=== PATIENT | male | born 1945 | race Caucasian/White ===

== ENCOUNTER 2017-04-13 09:25 | Day surgery (SDC) | payer BC ==
[2017-04-13] MEDS ORDERED: Lactated Ringers 1,000 ML IV SCH (09:30)
--- NOTE | 2017-04-13 11:02 | PCM.OPNOTE ---
- General Post-Op/Procedure Note Date of Surgery/Procedure: 04/13/17 Operative Procedure(s): egd with bx Findings: gastritis fundic gland polyps Schatski's Ring Pre Op Diagnosis: epigastric abd pain Post-Op Diagnosis: gastritis. fundic gland polyps. Schatski's Ring Anesthesia Technique: MAC Primary Surgeon: Jon Urena Anesthesia Provider: Lolyd Arredondo Pathology: stomach and distal esophagus Complications: None Condition: Good Free Text/Narrative:: see dictation
--- NOTE | 2017-04-13 12:07 | OR ---
DATE OF OPERATION: 04/13/2017 SURGEON: Jon Urena MD PROCEDURE PERFORMED: Esophagogastroduodenoscopy with cold forceps biopsy. PREOPERATIVE DIAGNOSIS: Epigastric abdominal pain. POSTOPERATIVE DIAGNOSIS: Gastritis with fundic gland polyposis and Schatzki's ring. INDICATIONS FOR PROCEDURE: This is a 71-year-old white male, who has been having some issues with epigastric abdominal pain despite being on a proton pump inhibitor. He was offered and accepted an EGD as part of his workup. DESCRIPTION OF PROCEDURE: After an excellent IV sedation was administered and bite block was inserted, flexible endoscope was passed without difficulty down the patient's esophagus into the stomach. Stomach was insufflated, scope was passed through the pylorus to the second portion of the duodenum and slowly withdrawn. The following findings were noted. Duodenum was unremarkable. Stomach demonstrated some diffuse gastritis with some fundic gland hyperplasia. Casket Inspector biopsies were taken on the fundic gland and biopsies were taken of the stomach as well. Distal esophagus and GE junction measured approximately 35 cm. There was evidence of a Schatzki's ring and biopsies were taken of this ring. Remainder of the esophageal exam was unremarkable. The stomach was deflated. Scope was removed. The patient tolerated procedure well and was taken to recovery room in good condition. /[id number] /MODL
[2017-04-13 12:18] VITALS: BP 156/93
[2017-04-13] MEDS ORDERED: Lidocaine 2% 100 MG/5 ML Syringe IVPUSH ONE (16:30)
[2017-04-13] MEDS ORDERED: Propofol 200 MG/20 ML SDV IV ONE (16:30)
== END 2017-04-13 12:07 | disposition home or self-care (01) ==
LOC: FB.SDS 09:25
PROVIDERS: ATTEND Surgery
DX: K29.50 Unspecified chronic gastritis without bleeding (principal); K20.9 Esophagitis, unspecified; K31.7 Polyp of stomach and duodenum; K22.2 Esophageal obstruction; I10 Essential (primary) hypertension; N40.1 Benign prostatic hyperplasia with lower urinary tract symptoms; E66.9 Obesity, unspecified; Z79.82 Long term (current) use of aspirin; Z79.2 Long term (current) use of antibiotics; Z79.899 Other long term (current) drug therapy; Z68.32 Body mass index [BMI] 32.0-32.9, adult
CPT/HCPCS: 43239; 88305; 88313; 88342; J2704; J7120

== ENCOUNTER 2018-08-29 12:27 | Emergency (ER) | payer MEDICARE, BC ==
--- NOTE | 2018-08-29 12:37 | EDM.PDOC ---
ED HPI GENERAL MEDICAL PROBLEM - General Stated Complaint: CHEST PAIN Time Seen by Provider: 08/29/18 12:27 Source of Information: Reports: Patient, Family () History Limitations: Reports: No Limitations - History of Present Illness INITIAL COMMENTS - FREE TEXT/NARRATIVE: 72 y.o.w.m with no prev CAD, H/o HTN, came to the ED with his after he woke up from a NAP after breakfast, at rest, with chest pain 6/10, no Diaphoresis, no SOB, pos FH of CAD. Pt had a Cardiac W/U last January which was borderline. Initial ECG showed ST dep ant lat leads. [address] elevation on Lead II only. No Dizziness no lightheadedness, no F/C, no other acute med issues. BP 159/100 RR 15 Pulse ox 98% on RA, Pulse 71 Temp 36.6 Onset Date: 08/29/18 Onset Time: 10:00 Duration: Hour(s): Location: Reports: Chest Quality: Reports: Dull, Pressure (new event) Severity: Moderate (6/10) Improves with: Reports: Medication Worsens with: Reports: Other Context: Reports: Other Associated Symptoms: Reports: Chest Pain Treatments BRANCH ADMINISTRATOR: Reports: Aspirin (81 mg) chest Pain Score (Numeric/FACES): 4 - Related Data Allergies Allergy/AdvReac Type Severity Reaction Status Date / Time No Known Allergies Allergy Verified 08/29/18 12:36 Home Meds: Home Meds Ascorbate Calcium [Vitamin C] 1,000 mg PO DAILY 03/22/16 [History] Aspirin 325 mg PO DAILY 03/22/16 [History] Metoprolol Succinate 25 mg PO DAILY 03/22/16 [History] Multivitamin with Minerals [Multiple Vitamin] 1 tab PO DAILY 03/22/16 [History] [place]-3 Fatty Acids [Fish Oil] 1,000 mg PO DAILY 03/22/16 [History] Acetaminophen [Tylenol Arthritis] 650 mg PO Q8H PRN 04/12/17 [History] Bisacodyl 200 mg PO DAILY 04/12/17 [History] Calcium Carbonate/Vitamin D3 [Calcium 600 + Vit D 200] 1 ea PO DAILY 04/12/17 [ History] Finasteride [Proscar] 5 mg PO DAILY 04/12/17 [History] Tamsulosin HCl [Flomax] 0.4 mg PO DAILY 04/12/17 [History] Pantoprazole [ProTONIX] 40 mg PO DAILY 03/21/18 [History] Past Medical History HEENT History: Reports: Allergic Rhinitis, Impaired Vision Cardiovascular History: Reports: Hypertension Other Cardiovascular History: ATYPICAL CHEST PAIN WITH NEGATIVE STRESS TEST IN JAN 2018 Respiratory History: Reports: None Gastrointestinal History: Reports: Colon Polyp Genitourinary History: Reports: Prostate Disorder, Renal Calculus, UTI, Recurrent Other Genitourinary History: BILATERAL KIDNEY STONES, BLADDER DIVERTICULUM, ENLARGED PROSTATE, UTI'S, GOUT, ELEVATED PSA BRANCH MANAGER TRAINEE History: Reports: None Musculoskeletal History: Reports: Fracture, Gout, Osteoarthritis Other Musculoskeletal History: CLOSED FX PATELLA Neurological History: Reports: None, Concussion, Head Trauma Other Neuro History: STATES HAD CONCUSSION AROUND 20 Psychiatric History: Reports: None Endocrine/Metabolic History: Reports: Obesity/BMI 30+ Hematologic History: Reports: None Immunologic History: Reports: None Oncologic (Cancer) History: Reports: Basal Cell Carcinoma, Colon Other Oncologic History: neck - basal cell cancer Dermatologic History: Reports: None - Infectious Disease History Infectious Disease History: Reports: Chicken Pox, Measles - Past Surgical History Female Surgical History: Social & Family History - Family History Family Medical History: Noncontributory - Caffeine Use Caffeine Use: Reports: Coffee, Soda ED ROS GENERAL - Review of Systems Review Of Systems: See Below Constitutional: Reports: No Symptoms HEENT: Reports: No Symptoms Respiratory: Reports: No Symptoms Cardiovascular: Reports: Chest Pain (going down his right arm) Endocrine: Reports: No Symptoms GI/Abdominal: Reports: No Symptoms : Reports: No Symptoms Musculoskeletal: Reports: No Symptoms Skin: Reports: No Symptoms Neurological: Reports: No Symptoms Psychiatric: Reports: No Symptoms Hematologic/Lymphatic: Reports: No Symptoms Immunologic: Reports: No Symptoms ED EXAM, GENERAL - Physical Exam Exam: See Below Exam Limited By: No Limitations General Appearance: Alert, WD/WN, Moderate Distress Eye Exam: Bilateral Eye: Normal Inspection Ears: Normal External Exam, Normal Canal Ear Exam: Bilateral Ear: Auricle Normal Nose: Normal Inspection, Normal Mucosa, No Blood Throat/Mouth: Normal Inspection, Normal Lips, Normal Voice, No Airway Compromise Head: Atraumatic, Normocephalic Neck: Normal Inspection, Supple, Non-Tender Respiratory/Chest: No Respiratory Distress, Lungs Clear Cardiovascular: Normal Peripheral Pulses, Regular Rate, Rhythm, No Edema, No Gallop Peripheral Pulses: 1+: Brachial (L) GI/Abdominal: Normal Bowel Sounds, Soft, Non-Tender, No Organomegaly, Pelvis Stable (Male) Exam: Deferred Rectal (Males) Exam: Deferred Back Exam: Normal Inspection, Full Range of Motion Extremities: Normal Inspection, Normal Range of Motion, Non-Tender, Normal Capillary Refill Neurological: Alert, Oriented, CN II-XII Intact, Normal Cognition, Normal Gait Psychiatric: Normal Affect, Normal Mood Skin Exam: Warm, Dry, Intact, Normal Color, No Rash Lymphatic: No Adenopathy EKG INTERPRETATION EKG Date: 08/29/18 Time: 12:25 Rhythm: NSR Rate (Beats/Min): 66 [place]: Normal P-Wave: Present QRS: Normal ST-T: Elevated (on lead III only 1/2 mm) QT: Normal Comparison: NA - No Prior EKG EKG Interpretation Comments: Second EC08/29/2018 14.41: Improved ST depression, ST elevation Lead II subsided Course - Vital Signs Text/Narrative:: 72 y.o.w.m with no prev CAD, H/o HTN, came to the ED with his after he woke up from a NAP after breakfast, at rest, with chest pain /10, no Diaphoresis, no SOB, pos FH of CAD. Pt had a Cardiac W/U last January which was borderline. Initial ECG showed ST dep ant lat leads. [address] elevation on Lead II only. No Dizziness no lightheadedness, no F/C, no other acute med issues. BP 159/100 RR 15 Pulse ox 98% on RA, Pulse 71 Temp 36.6 PE: WNWD W M with SSCP radiating to his right arm, first event of this kind of pain 10/01 Imaging: possible COPD, cardiomegaly as per RAD. Angio CT: No PA. Has calcification in his Coronary vessels, Fixed Hiatal hernia as per RAD Labs: Troponin 0.058 D Dimer 0.63 BMP nl except GFR was 59 Impression: Unstable angina, HTN, Elevated D dimer TX: ASA BRANCH ADMINISTRATOR, NTG paste, Heparin trip, Labetalol Reexam: Pain free after Tx 2.00 pm/3.00pm, pending Angio CT results: Consultation: Dr Zacarias, Hospitalist, [facility]: Agreed with Tx; accepted pt for transfer and further Tx Plan: Transfer by EMS to [facility] Last Recorded V/S: Last Vital Signs Temp 36.6 C 08/29/18 12:27 Pulse 71 08/29/18 12:27 Resp 16 08/29/18 14:45 BP 153/87 H 08/29/18 14:45 Pulse Ox 97 08/29/18 14:45 - Orders/Labs/Meds Orders: Active Orders 24 hr Category Date Time Status EKG Documentation Completion [RC] ASDIRECTED Care 08/29/18 12:48 Active EKG Documentation Completion [RC] ASDIRECTED Care 08/29/18 14:18 Active Heparin Sodium/0.45% NaCl [Heparin 25,000 Units in 1/2 Med 08/29/18 13:30 Active NS 500 ML] 25,000 units in 500 ml IV TITRATE Sodium Chloride 0.9% [Saline Flush] Med 08/29/18 13:00 Active 10 ml FLUSH ASDIRECTED PRN Peripheral IV Insertion Adult [OM.PC] Routine Oth 08/29/18 12:54 Ordered EKG 12 Lead [EK] Routine Ther 08/29/18 11:30 Ordered EKG 12 Lead [EK] Routine Ther 08/29/18 14:18 Ordered Medication Orders Heparin Sodium/Sodium Chloride (Heparin 25,000 Units In 1/2 Ns 500 Ml) 25,000 units in 500 mls @ 19.998 mls/hr IV TITRATE MARCK; Protocol Last Admin: 08/29/18 14:07 Dose: 10.02 units/kg/hr, 19.998 mls/hr Sodium Chloride (Saline Flush) 10 ml FLUSH ASDIRECTED PRN PRN Reason: Keep Vein Open Last Admin: 08/29/18 13:56 Dose: 10 ml Admin: 08/29/18 13:35 Dose: 10 ml Labs: Laboratory Tests 08/29/18 08/29/18 08/29/18 Range/Units 12:50 12:50 12:50 WBC 6.4 (4.5-12.0) X10-3/uL RBC 3.96 L (4.30-5.75) x10(6)uL Hgb 13.5 (13.5-17.8) g/dL Hct 39.7 (30.0-51.3) % MCV 100.3 H (80-96) fL MCH 34.2 H (27.7-33.6) pg MCHC 34.1 (32.2-35.4) g/dL RDW 13.0 (11.5-15.5) % Plt Count 160 (125-369) X10(3)uL MPV 9.9 (7.4-10.4) fL Neut % (Auto) 65.8 (46-82) % Lymph % (Auto) 26.8 (13-37) % [place] % (Auto) 5.6 (4-12) % Eos % (Auto) 1 (1.0-5.0) % Baso % (Auto) 1 (0-2) % Neut # (Auto) 4.1 (1.6-8.3) # Lymph # (Auto) 1.7 (0.6-5.0) # [place] # (Auto) 0.4 (0.0-1.3) # Eos # (Auto) 0.1 (0.0-0.8) # Baso # (Auto) 0.1 (0.0-0.2) # PT 11.0 (8.7-11.1) INR 1.13 (0.89-1.13) D-Dimer, Quantitative 0.63 H (0.0-0.59) mg/LFEU Sodium 143 (135-145) mmol/L Potassium 3.8 (3.5-5.3) mmol/L Chloride 105 (100-110) mmol/L Carbon Dioxide 27 (21-32) mmol/L BUN 17 (7-18) mg/dL Creatinine 1.2 (0.70-1.30) mg/dL Est Cr Clr Drug Dosing TNP Estimated GFR (MDRD) 59 L (>60) BUN/Creatinine Ratio 14.2 (9-20) Glucose 104 (80-116) mg/dL Calcium 8.9 (8.6-10.2) mg/dL Troponin I (<0.017-0.056) ng/mL Urine Color (YELLOW) Urine Appearance (CLEAR) Urine pH (5.0-6.5) Ur Specific [place] (1.010-1.025) Urine Protein (NEGATIVE) mg/dL Urine Glucose (UA) (NORMAL) mg/dL Urine Ketones (NEGATIVE) mg/dL Urine Occult Blood (NEGATIVE) Urine Nitrite (NEGATIVE) Urine Bilirubin (NEGATIVE) Urine Urobilinogen (NEGATIVE) mg/dL Ur Leukocyte Esterase (NEGATIVE) Urine RBC (0-5) Urine WBC (0-5) Ur Squamous Epith Cells (NS,R,O) Urine Bacteria (NS) Urine Mucus (NS) 08/29/18 08/29/18 Range/Units 12:50 13:15 WBC (4.5-12.0) X10-3/uL RBC (4.30-5.75) x10(6)uL Hgb (13.5-17.8) g/dL Hct (30.0-51.3) % MCV (80-96) fL MCH (27.7-33.6) pg MCHC (32.2-35.4) g/dL RDW (11.5-15.5) % Plt Count (125-369) X10(3)uL MPV (7.4-10.4) fL Neut % (Auto) (46-82) % Lymph % (Auto) (13-37) % [place] % (Auto) (4-12) % Eos % (Auto) (1.0-5.0) % Baso % (Auto) (0-2) % Neut # (Auto) (1.6-8.3) # Lymph # (Auto) (0.6-5.0) # [place] # (Auto) (0.0-1.3) # Eos # (Auto) (0.0-0.8) # Baso # (Auto) (0.0-0.2) # PT (8.7-11.1) INR (0.89-1.13) D-Dimer, Quantitative (0.0-0.59) mg/LFEU Sodium (135-145) mmol/L Potassium (3.5-5.3) mmol/L Chloride (100-110) mmol/L Carbon Dioxide (21-32) mmol/L BUN (7-18) mg/dL Creatinine (0.70-1.30) mg/dL Est Cr Clr Drug Dosing Estimated GFR (MDRD) (>60) BUN/Creatinine Ratio (9-20) Glucose (80-116) mg/dL Calcium (8.6-10.2) mg/dL Troponin I 0.058 H (<0.017-0.056) ng/mL Urine Color Yellow (YELLOW) Urine Appearance Clear (CLEAR) Urine pH 7.0 H (5.0-6.5) Ur Specific [place] 1.010 (1.010-1.025) Urine Protein Negative (NEGATIVE) mg/dL Urine Glucose (UA) Normal (NORMAL) mg/dL Urine Ketones Negative (NEGATIVE) mg/dL Urine Occult Blood Negative (NEGATIVE) Urine Nitrite Negative (NEGATIVE) Urine Bilirubin Negative (NEGATIVE) Urine Urobilinogen Normal (NEGATIVE) mg/dL Ur Leukocyte Esterase Negative (NEGATIVE) Urine RBC 0-5 (0-5) Urine WBC 0-5 (0-5) Ur Squamous Epith Cells Occasional (NS,R,O) Urine Bacteria Occasional H (NS) Urine Mucus Occasional H (NS) Meds: Medications Generic Name Dose Route Start Last Admin Trade Name Freq PRN Reason Stop Dose Admin Heparin Sodium/Sodium Chloride 25,000 units in 500 mls @ 19.998 mls/hr 13:30 08/29/18 14:07 Heparin 25,000 Units In 1/2 Ns 500 Ml IV 10.02 units/kg/hr TITRATE MARCK 19.998 mls/hr Administration Protocol 10.02 UNITS/KG/HR Sodium Chloride 10 ml 08/29/18 13:00 08/29/18 13:56 Saline Flush FLUSH 10 ml ASDIRECTED PRN Administration Keep Vein Open Discontinued Medications Generic Name Dose Route Start Last Admin Trade Name Freq PRN Reason Stop Dose Admin Acetaminophen 650 mg 08/29/18 15:17 Tylenol PO 08/29/18 15:18 NOW ONE Aspirin 162 mg 08/29/18 12:38 08/29/18 12:47 Aspirin PO 08/29/18 12:39 Not Given ONETIME STA Aspirin 81 mg 08/29/18 12:39 08/29/18 12:47 Aspirin PO 08/29/18 12:40 Not Given ONETIME STA Iopamidol 100 ml 08/29/18 14:14 08/29/18 14:32 Isovue-370 (76%) IV 08/29/18 14:15 85 ml . DIRECTED ONE Administration Labetalol HCl Confirm 08/29/18 13:24 08/29/18 14:45 Normodyne Administered 08/29/18 13:25 Not Given Dose 100 mg .ROUTE .STK-MED ONE Labetalol HCl 10 mg 08/29/18 13:20 08/29/18 13:35 Normodyne IV 08/29/18 13:21 10 mg ONETIME STA Administration Protocol Labetalol HCl 10 mg 08/29/18 13:55 08/29/18 13:58 Normodyne IV 08/29/18 13:56 10 mg ONETIME ONE Administration Protocol Nitroglycerin 1 gm 08/29/18 12:53 08/29/18 13:00 Nitro-Bid 2% TOP 08/29/18 12:54 1 gm ONETIME STA Administration Departure - Departure Time of Disposition: 15:32 Disposition: DC/Tfer to [facility] 02 Reason for Transfer *Q: Other (No field sales representative) Condition: Fair Clinical Impression: Unstable angina Referrals: Jonathan Gomez MD [Primary Care Provider] - - My Orders Last 24 Hours: My Active Orders 08/29/18 11:30 EKG 12 Lead [EK] Routine 08/29/18 12:48 EKG Documentation Completion [RC] ASDIRECTED 08/29/18 12:54 Peripheral IV Insertion Adult [OM.PC] Routine 08/29/18 13:00 Sodium Chloride 0.9% [Saline Flush] 10 ml FLUSH ASDIRECTED PRN 08/29/18 13:30 Heparin Sodium/0.45% NaCl [Heparin 25,000 Units in 1/2 NS 500 ML] 25,000 units in 500 ml IV TITRATE 08/29/18 14:18 EKG Documentation Completion [RC] ASDIRECTED EKG 12 Lead [EK] Routine - Assessment/Plan Last 24 Hours: My Active Orders 08/29/18 11:30 EKG 12 Lead [EK] Routine 08/29/18 12:48 EKG Documentation Completion [RC] ASDIRECTED 08/29/18 12:54 Peripheral IV Insertion Adult [OM.PC] Routine 08/29/18 13:00 Sodium Chloride 0.9% [Saline Flush] 10 ml FLUSH ASDIRECTED PRN 08/29/18 13:30 Heparin Sodium/0.45% NaCl [Heparin 25,000 Units in 1/2 NS 500 ML] 25,000 units in 500 ml IV TITRATE 08/29/18 14:18 EKG Documentation Completion [RC] ASDIRECTED EKG 12 Lead [EK] Routine
[2018-08-29] MEDS ORDERED: Aspirin 81 MG Tab.Chew PO STA ×2 (12:38→12:39)
[2018-08-29] MEDS ORDERED: Nitroglycerin 2% Oint 1 GM UD Packet TOP STA (12:53)
[2018-08-29] MEDS ORDERED: Labetalol 20 MG/4 ML Syringe IVPUSH STA ×2 (13:20→13:55)
[2018-08-29] MEDS ORDERED: Labetalol 100 MG/20 ML MDV IV STA (13:20)
[2018-08-29] MEDS ORDERED: Labetalol 100 MG/20 ML MDV ONE (13:24)
--- NOTE | 2018-08-29 13:27 | CR ---
INDICATION: Chest pain. CHEST: AP portable upright view of the chest 08/29/18 - no comparisons. Findings compatible with COPD and ASHD with cardiomegaly are noted. No definite evidence of CHF is seen. No definite active infiltrate or effusion was identified, although minimal patchy pneumonia at the left lower lobe cannot be excluded. Overlying EKG leads are noted. The aorta is tortuous with calcification in the arch. IMPRESSION: 1. No acute process. 2. ASHD with cardiomegaly. 3. COPD. 4. Difficult to exclude minimal patchy bronchopneumonia at the left lower lobe. MTDD
[2018-08-29] MEDS ORDERED: Heparin Sodium/0.45% NaCl 25,000 UNITS/500 ML BAG IV SCH (13:30)
[2018-08-29] MEDS: Sodium Chloride 0.9% 10 ML Syringe FLUSH PRN ×2 (13:35→13:56)
[2018-08-29] MEDS ORDERED: Labetalol 100 MG/20 ML MDV IV ONE (13:55)
[2018-08-29] MEDS ORDERED: Iopamidol 755 Mg/ML 100 ML Bottle IV ONE (14:14)
[2018-08-29] MEDS ORDERED: Acetaminophen 325 MG Tab PO ONE (15:17)
--- NOTE | 2018-08-29 15:31 | CT ---
INDICATION: Chest pain, elevated D-dimer (0.63). COMPUTERIZED TOMOGRAPHY ANGIOGRAPHY OF THE CHEST WITH CONTRAST: Spiral 1.25 mm axial sections were obtained through the chest with sagittal and coronal reconstructions, with 85 mL Isovue 370 at 3 mL/second, 08/29/18 - no comparisons. Total exam DLP = 1,061.39 mGy-cm. There is some minimal infiltration in the superior segment of the left lower lobe, which could be on the basis of patchy pneumonia, extending minimally into the posterior basilar segment. This area of heavy markings could also be partly on the basis of subsegmental atelectasis. There are some heavy markings, and this could represent minimal pneumonia and/ or subsegmental atelectasis in the lingula also to a mild degree. Slightly heavy markings at the right lung base and left lung base likely are fibrotic in nature. Subpleural density in the middle lobe on axial image #74 may represent a lymph node. No gross consolidating pneumonia or significant effusion could be identified. A small to moderate sized fixed hiatal hernia is noted. The heart is normal in size. No pericardial effusion was seen. There is coronary artery calcification noted. No mediastinal mass was seen. Mediastinal lymphadenopathy is present of mild degree, which is nonspecific. There is some calcification noted in the arch of the aorta and brachiocephalic vessel origins. There is also calcification in the descending thoracic aorta and abdominal aorta. No evidence of pulmonary embolus could be identified. Compression fractures in the upper middle and lower middle thoracic spine are noted, most likely old. Renal calcinosis is noted with a moderate sized renal lesion on the right in the mid pole posterior cortex, partially exophytic, likely representing a simple cyst. No definite obstructive uropathy was seen. Mild renal cortical scarring is suggested. IMPRESSION: 1. No evidence of PE. 2. Parenchymal changes in the superior segment of the left lower lobe and lingula, which may be on the basis of fibrosis and possibly minimal pneumonia and/or subsegmental atelectasis. 3. Coronary artery disease. 4. Mild pulmonary basilar fibrosis type changes. 5. Probable simple cyst right kidney. 6. Renal calcinosis. 7. ASD. Report was given by phone to Dr. Morocho at 1504 hours on 08/29/18. [email or web address]
[2018-08-29 15:54] VITALS: BP 153/80
== END 2018-08-29 15:55 ==
LOC: FB.ED 12:27
DX: I20.0 Unstable angina (principal); I10 Essential (primary) hypertension; R79.89 Other specified abnormal findings of blood chemistry; Z79.82 Long term (current) use of aspirin; Z79.899 Other long term (current) drug therapy
CPT/HCPCS: 36415; 71045; 71275; 80048; 81001; 84484; 85025; 85379; 85610; 93005; 93010; 96365; 96366; 96375; 99285; 99285-25; A9270-GY; J1644; J3490; Q9967

== ENCOUNTER 2020-01-22 11:02 | Emergency (ER) | payer OTHER, MEDICARE, BC ==
[2020-01-22] MEDS ORDERED: Ibuprofen 400 MG Tab PO ONE (11:45)
[2020-01-22] MEDS ORDERED: Acetaminophen 500 MG Tab PO ONE (11:46)
--- NOTE | 2020-01-22 12:37 | EDM.PDOC ---
ED HPI GENERAL MEDICAL PROBLEM - General Chief Complaint: Upper Extremity Injury/Pain Stated Complaint: LEFT SHOULDER INJURY Time Seen by Provider: 01/22/20 11:40 Source of Information: Reports: Patient History Limitations: Reports: No Limitations - History of Present Illness INITIAL COMMENTS - FREE TEXT/NARRATIVE: Patient presented to the ED because of a fall. He was working at the [employer] [facility] when he tripped and fell 7 flight of stairs down. There is no LOC after the fall but c/o left shoulder and left rib pain. She sustained an abrasion over the left knee but is able to ambulate without any pain. L shoulder & L rib Pain Score (Numeric/FACES): 5 - Related Data Allergies Allergy/AdvReac Type Severity Reaction Status Date / Time No Known Allergies Allergy Verified 01/22/20 11:24 Home Meds: Home Meds Ascorbate Calcium [Vitamin C] 1,000 mg PO DAILY 03/22/16 [History] Aspirin 325 mg PO DAILY 03/22/16 [History] Metoprolol Succinate 25 mg PO DAILY 03/22/16 [History] Multivitamin with Minerals [Multiple Vitamin] 1 tab PO DAILY 03/22/16 [History] Howell-3 Fatty Acids [Fish Oil] 1,000 mg PO DAILY 03/22/16 [History] Acetaminophen [Tylenol Arthritis] 650 mg PO Q8H PRN 04/12/17 [History] Calcium Carbonate/Vitamin D3 [Calcium 600 + Vit D 200] 1 ea PO DAILY 04/12/17 [History] Finasteride [Proscar] 5 mg PO DAILY 04/12/17 [History] Tamsulosin HCl [Flomax] 0.4 mg PO DAILY 04/12/17 [History] bisacodyL [Bisacodyl] 200 mg PO DAILY 04/12/17 [History] Pantoprazole [ProTONIX] 40 mg PO DAILY 03/21/18 [History] Past Medical History HEENT History: Reports: Allergic Rhinitis, Impaired Vision Cardiovascular History: Reports: Hypertension Other Cardiovascular History: ATYPICAL CHEST PAIN WITH NEGATIVE STRESS TEST IN JAN 2018 Respiratory History: Reports: None Gastrointestinal History: Reports: Colon Polyp Genitourinary History: Reports: Prostate Disorder, Renal Calculus, UTI, Recurrent Other Genitourinary History: BILATERAL KIDNEY STONES, BLADDER DIVERTICULUM, ENLARGED PROSTATE, UTI'S, GOUT, ELEVATED PSA [employer] History: Reports: None Musculoskeletal History: Reports: Fracture, Gout, Osteoarthritis Other Musculoskeletal History: CLOSED FX PATELLA Neurological History: Reports: None, Concussion, Head Trauma Other Neuro History: STATES HAD CONCUSSION AROUND 19 Psychiatric History: Reports: None Endocrine/Metabolic History: Reports: Obesity/BMI 30+ Hematologic History: Reports: None Immunologic History: Reports: None Oncologic (Cancer) History: Reports: Basal Cell Carcinoma, Colon Other Oncologic History: neck - basal cell cancer Dermatologic History: Reports: None - Infectious Disease History Infectious Disease History: Reports: Chicken Pox, Measles - Past Surgical History Female Surgical History: Social & Family History - Family History Family Medical History: Noncontributory - Caffeine Use Caffeine Use: Reports: Coffee, Soda Review of Systems - Review of Systems Review Of Systems: See Below Constitutional: Reports: No Symptoms Eyes: Reports: No Symptoms Ears: Reports: No Symptoms Nose: Reports: No Symptoms Mouth/Throat: Reports: No Symptoms Respiratory: Reports: No Symptoms Cardiovascular: Reports: No Symptoms GI/Abdominal: Reports: No Symptoms Genitourinary: Reports: No Symptoms Musculoskeletal: Reports: Shoulder Pain Skin: Reports: No Symptoms Neurological: Reports: No Symptoms Psychiatric: Reports: No Symptoms ED EXAM, GENERAL - Physical Exam Exam: See Below Exam Limited By: No Limitations General Appearance: Alert, No Apparent Distress Eye Exam: Bilateral Eye: PERRL Ears: Normal External Exam, Normal Canal, Hearing Grossly Normal Nose: Normal Inspection, Normal Mucosa, No Blood Throat/Mouth: Normal Inspection, Normal Lips, Normal Teeth, Normal Gums Head: Atraumatic, Normocephalic Neck: Normal Inspection, Supple, Non-Tender, Full Range of Motion Respiratory/Chest: No Respiratory Distress, Lungs Clear, Normal Breath Sounds Cardiovascular: Normal Peripheral Pulses, Regular Rate, Rhythm, No Edema, No Gallop GI/Abdominal: Normal Bowel Sounds, Soft, Non-Tender, No Organomegaly Back Exam: Normal Inspection, Full Range of Motion, Muscle Spasm. No: Vertebral Tenderness Extremities: Normal Inspection, Normal Range of Motion, Other (tenderness left shoulder) Neurological: Alert, Oriented, CN II-XII Intact, Normal Cognition, Normal Gait Psychiatric: Normal Affect Course - Vital Signs Text/Narrative:: Labs,Rib/CXR,CT C-spine and Head result was discussed with patient C-collar applied in ED Ibuprofen 400 mg and tylenol 1000 mg po x1 Last Recorded V/S: Last Vital Signs Temp 36.7 C 01/22/20 12:18 Pulse 68 01/22/20 12:18 Resp 18 01/22/20 12:18 BP 148/96 H 01/22/20 12:18 Pulse Ox 99 01/22/20 12:18 - Orders/Labs/Meds Orders: Active Orders 24 hr Category Date Time Status C-Spine [Cervical Spine wo Cont] [CT] Stat Exams 01/22/20 11:46 Taken Head wo Cont [CT] Stat Exams 01/22/20 11:46 Taken Ribs 2V w Chest Lt [CR] Stat Exams 01/22/20 11:48 Taken Shoulder Comp Lt [CR] Stat Exams 01/22/20 11:48 Taken UA W/MICROSCOPIC [URIN] Stat Lab 01/22/20 12:30 Ordered Labs: Laboratory Tests 01/22/20 01/22/20 01/22/20 Range/Units 11:25 11:25 11:25 WBC 7.2 (4.5-12.0) X10-3/uL RBC 3.92 L (4.30-5.75) x10(6)uL Hgb 13.0 L (13.5-17.8) g/dL Hct 39.7 (30.0-51.3) % MCV 101.1 H (80-96) fL MCH 33.1 (27.7-33.6) pg MCHC 32.8 (32.2-35.4) g/dL RDW 12.7 (11.5-15.5) % Plt Count 204 (125-369) X10(3)uL MPV 9.1 (7.4-10.4) fL Neut % (Auto) 69.2 (46-82) % Lymph % (Auto) 23.6 (13-37) % [place] % (Auto) 5.5 (4-12) % Eos % (Auto) 1 (1.0-5.0) % Baso % (Auto) 1 (0-2) % Neut # (Auto) 4.9 (1.6-8.3) # Lymph # (Auto) 1.7 (0.6-5.0) # [place] # (Auto) 0.4 (0.0-1.3) # Eos # (Auto) 0.1 (0.0-0.8) # Baso # (Auto) 0.1 (0.0-0.2) # PT 11.6 H (9.0-11.1) sec INR 1.08 (1.00-1.24) APTT 23.2 L (24.4-33.2) SECONDS Sodium 143 (135-145) mmol/L Potassium 4.4 (3.5-5.3) mmol/L Chloride 104 (100-110) mmol/L Carbon Dioxide 27 (21-32) mmol/L BUN 30 H D (7-18) mg/dL Creatinine 1.4 H (0.70-1.30) mg/dL Est Cr Clr Drug Dosing 50.04 mL/min Estimated GFR (MDRD) 49 L (>60) BUN/Creatinine Ratio 21.4 H (9-20) Glucose 119 H (80-116) mg/dL Calcium 9.2 (8.6-10.2) mg/dL Total Bilirubin 0.5 (0.1-1.3) mg/dL AST 16 (5-25) IU/L ALT 20 (12-36) U/L Alkaline Phosphatase 61 (56-112) IU/L Total Protein 7.5 (6.0-8.0) g/dL Albumin 3.6 (3.2-4.6) g/dL Globulin 3.9 g/dL Albumin/Globulin Ratio 0.9 Meds: Medications Discontinued Medications Generic Name Dose Route Start Last Admin Trade Name Freq PRN Reason Stop Dose Admin Acetaminophen 1,000 mg 01/22/20 11:46 01/22/20 12:24 Tylenol Extra Strength PO 01/22/20 11:47 1,000 mg ONETIME ONE Administration Ibuprofen 400 mg 01/22/20 11:45 01/22/20 12:25 Motrin PO 01/22/20 11:46 400 mg ONETIME ONE Administration Departure - Departure Time of Disposition: 13:30 Disposition: Home, Self-Care 01 Condition: Good Clinical Impression: Fall, Musculoskeletal pain, Rib contusion - Discharge Information Instructions: Shoulder Pain, [id number], Musculoskeletal Pain, Contusion, [id number] Referrals: Jonathan Gomez MD [Primary Care Provider] - Additional Instructions: Please read discharge instructions on contusion,musculoskeletal pain Apply ice or heat which ever makes the pain feel better You can take ibuprofen 400 mg with tylenol 500 mg every 4-6 hours as needed for pain Follow up as needed Sepsis Event Note (ED) - Evaluation Sepsis Screening Result: No Definite Risk - Focused Exam Vital Signs: Vital Signs Temp Pulse Resp BP Pulse Ox 01/22/20 12:18 36.7 C 68 18 148/96 H 99 01/22/20 11:35 36.2 C 63 20 158/77 H 99 - My Orders Last 24 Hours: My Active Orders 01/22/20 11:46 C-Spine [Cervical Spine wo Cont] [CT] Stat Head wo Cont [CT] Stat 01/22/20 11:48 Ribs 2V w Chest Lt [CR] Stat Shoulder Comp Lt [CR] Stat 01/22/20 12:30 UA W/MICROSCOPIC [URIN] Stat - Assessment/Plan Last 24 Hours: My Active Orders 01/22/20 11:46 C-Spine [Cervical Spine wo Cont] [CT] Stat Head wo Cont [CT] Stat 01/22/20 11:48 Ribs 2V w Chest Lt [CR] Stat Shoulder Comp Lt [CR] Stat 01/22/20 12:30 UA W/MICROSCOPIC [URIN] Stat
--- NOTE | 2020-01-22 12:57 | CT ---
INDICATION: Fall. CT HEAD WITHOUT CONTRAST: Spiral 3.75 mm axial sections were obtained through the brain without contrast with axial, sagittal and coronal reconstructions 01/22/20 - no comparison. Total exam DLP was 1270.76 mGy-cm. Retention cyst is noted at the base of the left maxillary antrum with smaller retention cyst in the upper portions of the maxillary antra, one each. Thickening of the lining is noted at the left frontal air cell. The paranasal sinuses and mastoid air cells were otherwise well aerated. No cranial fracture site was identified. Calcifications are fairly heavy in the vertebral and internal carotid arteries. The orbits appear to be intact. No shift of midline structures was identified. The ventricles are prominent compatible with central atrophy of moderate degree. Decreased densities are noted in the white matter compatible with mild to moderate microvascular disease type changes, although other causes of leukoencephalopathy cannot be excluded. No bleeding site or hematoma, or other finding to strongly suggest an acute intracranial abnormality, was identified. IMPRESSION: 1. No acute intracranial abnormality. 2. Cerebrovascular disease with arterial calcifications and white matter changes compatible with microvascular disease. 3. Moderate central atrophy. 4. Minimal findings in paranasal sinuses. MTDD
[2020-01-22 12:59] VITALS: PULSE 71
--- NOTE | 2020-01-22 13:07 | CT ---
INDICATION: Fall. CT CERVICAL SPINE WITHOUT CONTRAST: Spiral 2.5 mm axial sections were obtained through the cervical spine without contrast with sagittal and coronal reconstructions 01/22/20 - no comparisons. Degenerative changes are noted at the odonto-atlantian joint with narrowing of the joint space of moderately severe degree. Narrowing of the disk spaces is noted throughout the cervical spine, least severe at the C2-3 and C3-4 level. There is significant narrowing, however, at C3-4 and there are hypertrophic degenerative changes anteriorly and posteriorly from C3-4 through C7-T1. Decreased disk space is also noted at C7-T1. Vacuum disk phenomena is noted at C5-6, C6-7, and C7-T1. Anterolisthesis is noted at C4-5, grade 1 with grade 1 retrolisthesis at C5-6 and C6-7. This produces reversal of the normal cervical lordosis centered at C5 level. Prevertebral space appeared to be normal. Bone density may be somewhat diminished, but should be correlated clinically. A definite acute fracture or dislocation was not identified. Narrowing of neural foramina in the mid to lower levels is noted. IMPRESSION: 1. No acute fracture or dislocation. 2. Osteoarthritis with degenerative disk disease throughout the cervical spine with reversal of normal cervical lordosis centered at C5. [facility]
--- NOTE | 2020-01-22 13:14 | CR ---
INDICATION: Fall. LEFT SHOULDER X-RAYS: Four views of the left shoulder were obtained and revealed an appearance suggesting demineralization which could be on the basis of osteomalacia or osteoporosis and should be correlated clinically. Minimal degenerative change is noted at the AC joint. A definite acute fracture, dislocation other significant bone or joint abnormality, was not identified. IMPRESSION: Left shoulder negative for fracture or dislocation. MTDD
--- NOTE | 2020-01-22 13:20 | CR ---
INDICATION: Fall. LEFT RIBS WITH CHEST: PA view of the chest with 3 views of the left ribs were obtained 01/22/20 - no comparisons. The heart appears to be at the upper limits of normal in size to slightly enlarged. This is allowing for rotation of the chest to the left. Post median sternotomy changes noted. The aorta is tortuous with calcification in the arch. No definite contusion, infiltrate, effusion, or pneumothorax was identified. Somewhat flattened diaphragm leaves with mild hyperaeration suggests COPD. Views of the left ribs revealed old healed rib fractures at the fourth through seventh left ribs. No definite acute displaced left rib fractures were identified at this time. IMPRESSION: 1. No definite acute process. 2. Old healed rib fractures on the left - four through seven. 3. ASHD with post median sternotomy change. Report was called to Dr. Michelle at 1235 hours. [facility]
[2020-01-22 13:53] VITALS: BP 122/72
== END 2020-01-22 13:38 | disposition home or self-care (01) ==
LOC: FB.ED 11:02
DX: S20.212A Contusion of left front wall of thorax, initial encounter (principal); M10.9 Gout, unspecified; I10 Essential (primary) hypertension; E66.9 Obesity, unspecified; Z68.32 Body mass index [BMI] 32.0-32.9, adult; Z79.82 Long term (current) use of aspirin; Z79.899 Other long term (current) drug therapy; W10.9XXA Fall (on) (from) unspecified stairs and steps, initial encounter; Y99.0 Civilian activity done for income or pay
CPT/HCPCS: 36415; 70450; 71101; 72125; 73030; 80053; 81001; 85025; 85610; 85730; 99000; 99284; A9270; 99283

== ENCOUNTER 2022-02-04 07:43 | Emergency (ER) | payer MEDICARE, BC ==
[2022-02-04 13:10] VITALS: BP 150/90; PULSE 60
== END 2022-02-04 13:09 ==
LOC: FB.ED 07:43
DX: S02.81XA Fracture of other specified skull and facial bones, right side, initial encounter for closed fracture (principal); S02.40CA Maxillary fracture, right side, initial encounter for closed fracture; I10 Essential (primary) hypertension; E66.9 Obesity, unspecified; Z68.29 Body mass index [BMI] 29.0-29.9, adult; Z79.899 Other long term (current) drug therapy; Z79.82 Long term (current) use of aspirin; W01.0XXA Fall on same level from slipping, tripping and stumbling without subsequent striking against object, initial encounter
CPT/HCPCS: 12013; 70450; 70486; 71101-RT; 99283

== ENCOUNTER 2023-10-03 08:50 | Day surgery (SDC) | payer MEDICARE, BC ==
[2023-10-03] MEDS ORDERED: Midazolam 1 MG/ML 2 ML SDV IV ONE (08:51)
[2023-10-03] MEDS ORDERED: fentaNYL 100 MCG/2 ML SDV IV ONE (08:51)
[2023-10-03] MEDS ORDERED: Lactated Ringers 1,000 ML IV PRN (09:00)
[2023-10-03] MEDS: Sodium Chloride 0.9% 10 ML Syringe FLUSH PRN (09:27)
[2023-10-03] MEDS: acetaZOLAMIDE 500 MG Cap.ER PO ONE (10:58)
[2023-10-03 13:42] VITALS: BP 141/72; PULSE 57
== END 2023-10-03 11:30 | disposition home or self-care (01) ==
LOC: FB.SDS 08:50
PROVIDERS: ATTEND Ophthalmology
DX: H25.813 Combined forms of age-related cataract, bilateral (principal); H04.123 Dry eye syndrome of bilateral lacrimal glands; H35.373 Puckering of macula, bilateral; H40.013 Open angle with borderline findings, low risk, bilateral; H53.2 Diplopia; H52.01 Hypermetropia, right eye; H52.03 Hypermetropia, bilateral; I25.2 Old myocardial infarction; K21.9 Gastro-esophageal reflux disease without esophagitis; I11.0 Hypertensive heart disease with heart failure; I50.9 Heart failure, unspecified; Z79.899 Other long term (current) drug therapy
CPT/HCPCS: 00142; 99100; A9270-GY; J2250; J3010; J3490; V2632

== ENCOUNTER 2023-10-17 08:36 | Day surgery (SDC) | payer MEDICARE, BC ==
[2023-10-17] MEDS ORDERED: Midazolam 1 MG/ML 2 ML SDV IV ONE (08:37)
[2023-10-17] MEDS ORDERED: Sodium Chloride 0.9% 10 ML Syringe FLUSH PRN (09:00)
[2023-10-17] MEDS ORDERED: Lactated Ringers 1,000 ML IV PRN (09:00)
[2023-10-17] MEDS: acetaZOLAMIDE 500 MG Cap.ER PO ONE (10:45)
[2023-10-17 13:21] VITALS: BP 128/69; PULSE 54
== END 2023-10-17 10:57 | disposition home or self-care (01) ==
LOC: FB.SDS 08:36
PROVIDERS: ATTEND Ophthalmology
DX: H26.9 Unspecified cataract (principal); I10 Essential (primary) hypertension; I25.2 Old myocardial infarction; Z95.5 Presence of coronary angioplasty implant and graft; N40.0 Benign prostatic hyperplasia without lower urinary tract symptoms; K21.9 Gastro-esophageal reflux disease without esophagitis; Z79.82 Long term (current) use of aspirin; Z79.899 Other long term (current) drug therapy
CPT/HCPCS: 00142; 66984; 99100; A9270; J2250; V2632

== ENCOUNTER 2023-11-25 09:19 | Emergency (ER) | payer MEDICARE, BC ==
[2023-11-25] MEDS ORDERED: Lidocaine 2% 5 ML SDV INFILT ONE (09:20)
[2023-11-25 14:24] VITALS: BP 140/72; PULSE 67
== END 2023-11-25 11:35 | disposition home or self-care (01) ==
LOC: FB.ED 09:19
DX: S61.217A Laceration without foreign body of left little finger without damage to nail, initial encounter (principal); S61.215A Laceration without foreign body of left ring finger without damage to nail, initial encounter; I10 Essential (primary) hypertension; Z86.73 Personal history of transient ischemic attack (TIA), and cerebral infarction without residual deficits; Z79.899 Other long term (current) drug therapy; Z79.82 Long term (current) use of aspirin; Z95.1 Presence of aortocoronary bypass graft; W31.89XA Contact with other specified machinery, initial encounter
CPT/HCPCS: 12002; 99282; 99283